=== PATIENT | female | born 1945 ===

== ENCOUNTER 2017-08-10 16:50 | Inpatient (IN) | payer MEDICARE ==
[2017-08-10 18:34] LABS: BASO # 0.1 K/uL (0.0-0.2); BASO % 1.2 % (0.0-2.0); EOS # 0.2 K/uL (0.0-0.7); EOS % 1.8 % (0.0-4.0); HEMOGLOBIN 12.8 g/dL (12.0-16.0); LYMPH % 34.2 % (20.0-40.0); MEAN CELL VOLUME 83.9 fl (81.0-99.0); MEAN CORPUSCULAR HEMOGLOBIN 28.5 pg (27.0-31.0); MEAN CORPUSCULAR HGB CONC 33.9 g/dL (33.0-37.0); MEAN PLATELET VOLUME 9.2 fl (7.2-11.7); MONO # 0.7 K/uL (0.0-0.8); MONO % 7.7 % (0.0-10.0); NEUT # 4.8 K/uL (1.8-7.0); NEUT % 55.1 % (50.0-75.0); RBC 4.48 Mil/uL (3.80-5.20); RED CELL DISTRIBUTION WIDTH 14.9 % (11.5-14.5); WHITE BLOOD COUNT 8.7 K/uL (4.8-10.8)
[2017-08-10 18:52] LABS: ALB/GLOB RATIO 1.2 (1.0-2.1); ALBUMIN 4.2 g/dL (3.5-5.0); ALT/SGPT 47 U/L (9-52); AST/SGOT 37 U/L (14-36); BLOOD UREA NITROGEN 14 mg/dl (7-17); CALCIUM 9.9 mg/dL (8.4-10.2); GFR AFRICAN-AMERICAN > 60; GFR NON-AFRICAN AMERICAN > 60
[2017-08-10 19:19] LABS: ACETAMINOPHEN < 10.0 ug/ml (10.0-30.0); SALICYLATE < 1.0 mg/dl
[2017-08-10 19:25] LABS: VALPROIC ACID 27.1 ug/mL (50.0-100.0)
--- NOTE | 2017-08-10 19:59 | ED PDOC ---
HPI: Psych/Substance Abuse Time Seen by Provider: 08/10/17 18:04 Chief Complaint (Nursing): Psychiatric Evaluation Chief Complaint (Provider): Psychiatric Evaluation History Per: Family History/Exam Limitations: no limitations Onset/Duration Of Symptoms: Days Current Symptoms Are (Timing): Still Present Additional Complaint(s): Shiloh Caicedo is a 71 year old female with a past medical history of bipolar disorder, who was brought to the ED by daughter for psychiatric evaluation s/p visiting her psychiatrist who recommended the patient be brought here. Daughter reports that the patient has had manic episodes for about two weeks and takes Depacon. She also states last Wednesday, she was brought to the hospital by the police, which exacerbated her guillermo. She denies any homicidal or suicidal ideation. Patient offers no other medical complaints at this time. PMD: Lili Phillips Past Medical History Reviewed: Historical Data, Nursing Documentation, Vital Signs Vital Signs: Last Vital Signs Temp 97.8 F 08/10/17 16:54 Pulse 76 08/10/17 16:54 Resp 18 08/10/17 16:54 BP 131/73 08/10/17 16:54 Pulse Ox 96 08/10/17 16:54 - Medical History PMH: Bipolar Disorder - Surgical History Surgical History: No Surg Hx - Family History Family History: States: Unknown Family Hx - Home Medications Home Medications: Ambulatory Orders Medication Instructions Recorded Divalproex [Depakote ER(ONCE 500 mg PO DAILY 08/10/17 DAILY)] Sertraline [Zoloft] 50 mg PO DAILY 08/10/17 hydroCHLOROthiazide [Hydrodiuril] 25 mg PO HS 08/10/17 - Allergies Allergies/Adverse Reactions: Allergies Allergy/AdvReac Type Severity Reaction Status Date / Time No Known Allergies Allergy Verified 08/10/17 16:57 Review of Systems ROS Statement: Except As Marked, All Systems Reviewed And Found Negative Psych: Positive for: Other ((+) manic episodes, (-) homicidal ideation). Negative for: Suicidal ideation Physical Exam - Reviewed Nursing Documentation Reviewed: Yes Vital Signs Reviewed: Yes - Physical Exam Appears: Positive for: Non-toxic, No Acute Distress Head Exam: Positive for: ATRAUMATIC, NORMAL INSPECTION, NORMOCEPHALIC Skin: Positive for: Normal Color Eye Exam: Positive for: Normal appearance Neck: Positive for: Normal Extremity: Positive for: Normal ROM. Negative for: Deformity, Swelling Neurologic/Psych: Positive for: Alert, Oriented. Negative for: Motor/Sensory Deficits - Laboratory Results Result Diagrams: 08/10/17 18:25 08/10/17 18:25 - ECG ECG: Positive for: Interpreted By Me ECG Rhythm: Positive for: Normal QRS, Sinus Rhythm, Nonspecific Changes Interpretation Of Abn EKG: early repol Rate: 65 O2 Sat by Pulse Oximetry: 96 (RA) Pulse Ox Interpretation: Normal Medical Decision Making Medical Decision Making: Time: 18:25 Plan: --Acetaminophen --Alcohol Serum--CMP --Drug Screen --Lavelle --Salicylate --Valproic Acid --CBC --Urinalysis --Crisis Evaluation Scribe Attestation: Documented by Arabella Norris, acting as a scribe for Vlad Potts PA-C Provider Scribe Attestation: All medical record entries made by the Scribe were at my direction and personally dictated by me. I have reviewed the chart and agree that the record accurately reflects my personal performance of the history, physical exam, medical decision making, and the department course for this patient. I have also personally directed, reviewed, and agree with the discharge instructions and disposition. Disposition - Clinical Impression Clinical Impression: Bipolar 1 disorder, manic, mild - Patient ED Disposition Is Patient to be Admitted: Yes Discussed With : Diana Golden Doctor Will See Patient In The: Hospital Counseled Patient/Family Regarding: Studies Performed, Diagnosis, Need For Followup - Disposition Disposition Time: 22:32 Condition: FAIR Forms: [email or web address] (Nepalese) - Pt Status Changed To: Hospital Disposition Of: Inpatient - Admit Certification Admit to Inpatient:: After my assessment, the patient will require hospitalization for at least two midnights. This is because of the severity of symptoms shown, intensity of services needed, and/or the medical risk in this patient being treated as an outpatient.
[2017-08-10 20:28] LABS: SQUAMOUS EPITHIAL 3 /hpf (0-5); URINE BACTERIA OCC (<OCC); URINE BILIRUBIN NEGATIVE (NEGATIVE); URINE BLOOD NEGATIVE (NEGATIVE); URINE CLARITY CLOUDY (Clear); URINE COLOR YELLOW (YELLOW); URINE GLUCOSE (UA) NEG (Normal); URINE LEUKOCYTE ESTERASE TRACE Leu/uL (Negative); URINE PROTEIN 30 mg/dL (NEGATIVE); URINE UROBILINOGEN 0.2-1.0 mg/dL (0.2-1.0)
[2017-08-10 20:33] LABS: BARBITURATES, UR NEGATIVE (NEGATIVE); BENZODIAZEPINES, UR NEGATIVE (NEGATIVE); OPIATES, UR NEGATIVE (NEGATIVE); PHENCYCLIDINE, UR NEGATIVE (NEGATIVE)
[2017-08-10 23:16] VITALS: O2SAT 97
[2017-08-11] MEDS ORDERED: Bismuth Subsalicylate 262 mg/15 ml Sus (240 ml) PO PRN (00:33)
[2017-08-11] MEDS ORDERED: Magnesium Hydroxide Susp 30 ml UD PO PRN (00:33)
[2017-08-11] MEDS ORDERED: Alum-Mag Hydrox-Simethicone Susp (30 mL) PO PRN (00:33)
--- NOTE | 2017-08-11 00:42 | PCM.BM ---
<JuanaWilmar Luna - Last Filed: 08/11/17 00:39> Treatment Plan Problems - Problems identified on initial assessmt Ineffective Impluse Control Date Initiated: 08/11/17 Time Initiated: 00:40 Assessment reference: NA Status: Active Treatment assets and liabiliti Patient Assests: cooperative, good support system, negotiates basic needs Patient Liabilities: other - Milieu Protocol Maintain good personal hygiene: daily Encourage regular showers, daily Remind patient to perform daily oral care, daily Assist patient to perform ADL's Maintain personal safety: every shift Educate patient to report safety concerns to staff, every shift Monitor environment for contraband/sharps Medication safety: Monitor for expected outcome, potential side effects: every shift, Assess barriers to learning: every shift, Assess readiness for medication education: every shift <Diana Golden - Last Filed: 08/11/17 11:13> - Diagnosis (1) Bipolar disorder Status: Acute Interventions: Medication management, Individual and group therapy, Psychoeducation 08/11/17 11:13 <Viji Hutton - Last Filed: 08/13/17 11:24> Family Contact Family contact: Patient agrees to contact, Family has been contacted by patient Family contact name: Eva - daughter Family contacted how many times per week?: 2 Discharge/Continuing Care - Education Needs Education Needs: Family Medication, Family Diagnosis/Disease Process, Family Coping Skills, Family Community resources, Family Health Practices/Safety, Family Personal Hygiene/Grooming, Family Aftercare Safety Plan, Patient Medication, Patient Diagnosis/Disease Process, Patient Coping Skills, Patient Community resources, Patient Health Practices/Safety, Patient Personal Hygiene/ Grooming, Patient Aftercare Safety Plan - Discharge Discharge Criteria: Tolerates medication w/o severe side effects, Free of paranoid thoughts, Free of agitation, Normal sleep pattern, Ability to care for self, Reduction of target symptoms Discharge to:: Home, With Family - Additional Comments 08/13/17 11:12 Pt seen and discussed in team meeting. Reason for admission reviewed and discussed. pt reported she does not recall who referred her to the hospital. Pt reported being in the hospital due to "something that happened to me." When asked to further elaborate, pt presented with flight of ideas and disorganized thought process. Pt started to talk about Holy and how she arrived from [place] to her son's home in [place], [place] to how her elderly mother of 99 is very sick in [place] and she needs to be discharged to go care for her. Pt very labile, talking about her grandmother that lived until the age of 105 and her aunt who recently in [facility] at the age of 95. Pt tearful when talking about her aunt. Pt carried around a notebook with her wherein she writes everything down. Pt guarded and hyper vigilant. Pt does not allow staff to look at the notebook. Notebook observed to have different post it on the outside with unit rooms numbers and name on it. Pt has been observed to be writing about until activity in her notebook and also about staff members. Again when asked why she was in the hospital, pt stated 'I don't talk much about that" and immediately after pt began talking about her grandchildren. Pt's social and medical issues reviewed. Pt reported she was residing with daughter, Eva but now resides alone. Pt's medications reviewed and discussed. Tx plan reviewed. Pt inquired about discharge and advised that it is recommended that she remain in the hospital until next week; pt verbalized agreement. SW to continue to follow case. Pt agreeable to journalists and other writers contacting her daughter, Eva and son, Gume Allison. Written consents forms were signed by pt. - Treatment Team Participation Discussed with Family/SO: No Was Patient/Family/SO present at Treatment Team Meeting: Yes
[2017-08-11 07:21] LABS: IRON 39 ug/dL (37-170)
[2017-08-11 07:31] LABS: ALB/GLOB RATIO 1.1 (1.0-2.1); ALBUMIN 3.6 g/dL (3.5-5.0); ALT/SGPT 42 U/L (9-52); AST/SGOT 32 U/L (14-36); BLOOD UREA NITROGEN 13 mg/dl (7-17); CALCIUM 9.4 mg/dL (8.4-10.2); GFR AFRICAN-AMERICAN > 60; GFR NON-AFRICAN AMERICAN > 60; HDL CHOLESTEROL 40 MG/DL (30-70); LDL CHOLESTEROL 146 mg/dL (0-129)
[2017-08-11 07:32] LABS: % IRON SATURATION 13 % (20-55); TOTAL IRON BINDING CAPACITY 287 ug/dL (250-450)
[2017-08-11 07:37] LABS: T4 6.84 ug/dl (5.5-11.0)
[2017-08-11 07:55] LABS: FERRITIN 61.6 ng/Ml (11.1-264.0)
--- NOTE | 2017-08-11 08:53 | CARD ---
APPROVED REPORT EKG Measurement Heart [id number] <Conclusion> Normal sinus rhythm Nonspecific ST abnormality Abnormal ECG
[2017-08-11] MEDS ORDERED: Divalproex 500 mg ER (ONCE DAILY formulation) PO SCH (10:00)
[2017-08-11] MEDS: Divalproex 500 mg DR(BID formulation) PO SCH ×2 (10:49→16:34)
--- NOTE | 2017-08-11 11:21 | PCM.PSYCH ---
Initial Psychiatric Evaluation - Initial Psychiatric Evaluation Type of Admission: Voluntary Legal Status: Capacity Chief Complaint (in patient's own words): "I don't want to tell you why I'm here." Patient's Reaction to Hospitalization: HPI: 71 yo female w/ h/o Bipolar disorder presents acutely manic in the context of family stress and unclear compliance with medications. Patient is guarded and will not discuss why she is in the hospital w/ principal technical writer. She denies AH/VH; but is clearly withholding information, covering her paperwork so that the principal technical writer can't see what she writes. She is manic, w/ pressured speech and inappropriately happy affect. Collateral history obtained by ER rice field worker: "Eva Caicedo- [phone]; Pt is bipolar, she has been sick for 12 years. She has been talking, insulting, repeating conversations on a continuous basis. She usually has at times low times and at times manic. For the past week and a half she has been manic. Pt was in [place] visiting her 99yr mom who is dying in bed. This has been difficult along with some other issues in there. A week ago she was taken to [facility] where she had a lot of philanthropy officer around her and that caused her to be very fearful. She was in the hallway of the hospital overnight where she saw a lot of activity that impacted her. She has not been the same since, she is traumatized. She is taking Depakote 500 mg, Sertralina 50mg and Hydrochlorothiazide 25mg. Pt is experiencing kyara." PPHx: H/o treatment w/ Depakote and Zoloft and outpatient treatment w/ Dr. Tilley PMHx: HTN (patient does not give any additional information) ALL: NKDA SHx: Retired, used to iron clothes, denies drugs/etoh, states that she lives "with any of my children" and reports having 9 grandchildren Current Medications: Active Medications Generic Name Dose Route Start Last Admin Trade Name Freq PRN Reason Stop Dose Admin Acetaminophen 650 mg 08/11/17 00:33 08/11/17 05:46 Tylenol 325mg Tab PO 650 mg Q4 PRN Administration Pain, moderate (4-7) Al Hydrox/Mg Hydrox/Simethicone 30 ml 08/11/17 00:33 Maalox Plus 30 Ml PO Q4 PRN Dyspepsia Bismuth Subsalicylate 524 mg 08/11/17 00:33 Pepto-Bismol PO Q4 PRN Diarrhea Divalproex Sodium 500 mg 08/11/17 10:00 08/11/17 10:[address](*Bid*) PO 500 mg BID PABLO Administration Lorazepam 0.5 mg 08/11/17 00:33 Ativan PO 08/25/17 00:34 HS PRN Insomnia Lorazepam 0.5 mg 08/11/17 00:33 Ativan PO 08/25/17 00:34 Q6 PRN Anixety/Agitation Magnesium Hydroxide 30 ml 08/11/17 00:33 Milk Of Magnesia PO HS PRN Constipation Past Psychiatric History - Past Psychiatric History Pertinent Medical Hx (Current Medical&Sleep Prob, Allergies): Allergies Allergy/AdvReac Type Severity Reaction Status Date / Time No Known Allergies Allergy Verified 08/10/17 16:57 Divalproex [Depakote ER(ONCE DAILY)] 500 mg PO DAILY 08/10/17 Sertraline [Zoloft] 50 mg PO DAILY 08/10/17 hydroCHLOROthiazide [Hydrodiuril] 25 mg PO HS 08/10/17 Lisinopril [Zestril] 20 mg PO DAILY 08/11/17 Review of Systems - Psychiatric Psychiatric: As Per HPI, Abnormal Sleep Pattern, Behavioral Changes, Change in Appetite, Difficulty Concentrating, Mood Swings, Other (Kyara) Mental Status Examination - Personal Presentation Personal Presentation: Looks stated age - Affect Affect: Other (Manic) - Motor Activity Motor Activity: Calm - Reliability in Providing Information Reliability in Providing Information: Poor, due to alteration in thoughts - Speech Speech: Coherent - Mood Mood: Euphoric - Formal Thought Process Formal Thought Process: Paranoia - Hallucinations/Delusions Additional comments: Denies AH/VH - Obsessions/Compulsions Obsessions: No Compulsions: No - Cognitive Functions Orientation: Person, Place, Situation, Time Sensorium: Alert Judgement: Imparied, as evidence by: Poor judgement, Imparied, as evidence by: Lack of insight into illness Memory: Recent impaired, as evidenced by: Other (Patient unwilling to give information, unclear if there are memory deficits) - Risk Risk: Diminished functioning - Strength & Assets Inventory Strength & Assets Inventory: Family support - Limitations Limitations: Decreased memory, recent DSM 5 DX - DSM 5 DSM 5 Diagnosis: Bipolar Disorder - Recommended/Plan of Treatment Treatment Recommendations and Plan of Treatment: Bipolar Disorder -Admit to geriatric psychiatry unit -Individual and group therapy -Psychoeducation -Increase Depakote to 500 PO BID (current VPA level 27.1) -Hold Zoloft -Medicine consult -Obtain collateral history -Disposition planning Projected ELOS: 5-10 days Discharge Plan and Discharge Criteria: Discharge when patient is psychiatrically stable
--- NOTE | 2017-08-11 12:19 | RAD ---
HISTORY: admit COMPARISON: No prior. TECHNIQUE: Chest PA and lateral FINDINGS: LUNGS: Limited fibrotic changes are questioned at the inferior right lung zone versus linear atelectasis. No definite airspace disease bilaterally. PLEURA: No significant pleural effusion identified. No pneumothorax apparent. CARDIOVASCULAR: Mild cardiomegaly without pulmonary vascular derangement appreciable. OSSEOUS STRUCTURES: No significant abnormalities. VISUALIZED UPPER ABDOMEN: Normal. OTHER FINDINGS: None. IMPRESSION: Mild cardiomegaly. No definite infiltrate, pleural effusion or pneumothorax. Limited fibrosis or linear atelectasis inferior right lung zone.
[2017-08-11 13:34] LABS: FOLATE 16.3 ng/mL
[2017-08-11] MEDS ORDERED: Potassium Chloride 20 mEq ER Tab PO ONE (14:20)
--- NOTE | 2017-08-11 16:01 | CP.PCM.CON ---
History of Present Illness - History of Present Illness History of Present Illness: This is a 71 year old female with past medical history of essential hypertension and bipolar disorder who is being brought to the ED for psychiatric evaluation with acute guillermo due to family stressors and noncompliance with medications. She was seen today by me in the inpatient psychiatric oleary. She has no complaints and states that she feels well. Patient denies chest pain, shortness of breath, fevers, chills, nausea, vomiting, diarrhea, headache. All of the patient's questions were answered at the bedside. Review of Systems - Review of Systems Review of Systems: A 12 point review of systems was conducted and found to be negative other than what was mentioned in the HPI. Past Patient History - Infectious Disease Hx of Infectious Diseases: None - Past Medical History & Family History Past Medical History?: Yes Past Family History: Reviewed and not pertinent - Past Social History Smoking Status: Never Smoked Alcohol: None Drugs: Denies Home Situation {Lives}: With Family - CARDIAC Hx Hypertension: Yes - MUSCULOSKELETAL/RHEUMATOLOGICAL Hx Falls: No - PSYCHIATRIC Hx Bipolar Disorder: Yes Hx Substance Use: No Meds Allergies/Adverse Reactions: Allergies Allergy/AdvReac Type Severity Reaction Status Date / Time No Known Allergies Allergy Verified 08/10/17 16:57 - Medications Medications: Current Medications Acetaminophen (Tylenol 325mg Tab) 650 mg PO Q4 PRN PRN Reason: Pain, moderate (4-7) Last Admin: 08/11/17 05:46 Dose: 650 mg Al Hydrox/Mg Hydrox/Simethicone (Maalox Plus 30 Ml) 30 ml PO Q4 PRN PRN Reason: Dyspepsia Atorvastatin Calcium (Lipitor) 20 mg PO HS PABLO Bismuth Subsalicylate (Pepto-Bismol) 524 mg PO Q4 PRN PRN Reason: Diarrhea Divalproex Sodium (Depakote Dr(*Bid*)) 500 mg PO BID [facility] Last Admin: 08/11/17 10:49 Dose: 500 mg Hydrochlorothiazide (Hydrodiuril) 25 mg PO DAILY [facility] Last Admin: 08/11/17 12:49 Dose: 25 mg Lisinopril (Zestril) 20 mg PO DAILY [facility] Last Admin: 08/11/17 12:49 Dose: 20 mg Lorazepam (Ativan) 0.5 mg PO HS PRN PRN Reason: Insomnia Stop: 08/25/17 00:34 Lorazepam (Ativan) 0.5 mg PO Q6 PRN PRN Reason: Anixety/Agitation Stop: 08/25/17 00:34 Magnesium Hydroxide (Milk Of Magnesia) 30 ml PO HS PRN PRN Reason: Constipation Physical Exam - Additional Findings Additional findings: Physical exam: Constitutional- cooperative, awake, alert Head- NCAT, PERRL Eye- PERRL, EOMI ENT- normal exam, MMM. Neck- normal inspection, supple, no JVD Respiratory- CTAB, no wheezes rales rhonchi Cardiovascular- RRR, +S1, +S2 no MRG GI/Abdominal- normal bowel sounds, soft, no mass, no hsm Skin- warm, dry Extremities Exam- normal capillary refill, normal inspection Neurological Exam- alert, awake, oriented Psych- labile mood, normal affect Results - Vital Signs Recent Vital Signs: Last Vital Signs Temp 97.2 F L 08/11/17 15:43 Pulse 74 08/11/17 15:43 Resp 19 08/11/17 15:43 BP 140/76 08/11/17 15:43 Pulse Ox 97 08/10/17 23:14 - Labs Result Diagrams: 08/10/17 18:25 08/11/17 05:50 Labs: Laboratory Results - last 24 hr 08/10/17 08/10/17 08/10/17 18:25 18:25 18:25 WBC 8.7 RBC 4.48 Hgb 12.8 Hct 37.6 MCV 83.9 MCH 28.5 MCHC 33.9 RDW 14.9 H Plt Count 253 MPV 9.2 Neut % (Auto) 55.1 Lymph % (Auto) 34.2 [place] % (Auto) 7.7 Eos % (Auto) 1.8 Baso % (Auto) 1.2 Neut # (Auto) 4.8 Lymph # (Auto) 3.0 [place] # (Auto) 0.7 Eos # (Auto) 0.2 Baso # (Auto) 0.1 Sodium 147 Potassium 3.4 L Chloride 100 Carbon Dioxide 32 H Anion Gap 18 BUN 14 Creatinine 0.8 Est GFR ( Amer) > 60 Est GFR (Non-Af Amer) > 60 Random Glucose 149 H Hemoglobin A1c Calcium 9.9 Iron TIBC % Saturation Ferritin Total Bilirubin 0.6 AST 37 H ALT 47 Alkaline Phosphatase 58 Total Protein 7.8 Albumin 4.2 Globulin 3.6 Albumin/Globulin Ratio 1.2 Triglycerides Cholesterol LDL Cholesterol Direct HDL Cholesterol Vitamin B12 Folate Free T4 Thyroxine (T4) TSH 3rd Generation Urine Color Urine Clarity Urine pH Ur Specific [place] Urine Protein Urine Glucose (UA) Urine Ketones Urine Blood Urine Nitrate Urine Bilirubin Urine Urobilinogen Ur Leukocyte Esterase Urine RBC (Auto) Urine Microscopic WBC Ur Squamous Epith Cells Urine Bacteria Salicylates < 1.0 Urine Opiates Screen Urine Methadone Screen Acetaminophen < 10.0 L Ur Barbiturates Screen Valproic Acid 27.1 L Ur Phencyclidine Scrn Ur Amphetamines Screen U Benzodiazepines Scrn Cascades < 0.2 L U Oth Cocaine Metabols U Cannabinoids Screen Alcohol, Quantitative < 10 08/10/17 08/10/17 08/11/17 19:56 19:56 05:50 WBC RBC Hgb Hct MCV MCH MCHC RDW Plt Count MPV Neut % (Auto) Lymph % (Auto) [place] % (Auto) Eos % (Auto) Baso % (Auto) Neut # (Auto) Lymph # (Auto) [place] # (Auto) Eos # (Auto) Baso # (Auto) Sodium 145 Potassium 3.4 L Chloride 102 Carbon Dioxide 29 Anion Gap 17 BUN 13 Creatinine 0.6 L Est GFR ( Amer) > 60 Est GFR (Non-Af Amer) > 60 Random Glucose 95 Hemoglobin A1c Calcium 9.4 Iron TIBC % Saturation Ferritin 61.6 Total Bilirubin 0.5 AST 32 ALT 42 Alkaline Phosphatase 55 Total Protein 6.9 Albumin 3.6 Globulin 3.3 Albumin/Globulin Ratio 1.1 Triglycerides 123 Cholesterol 221 H LDL Cholesterol Direct 146 H HDL Cholesterol 40 Vitamin B12 654 Folate 16.3 Free T4 Thyroxine (T4) 6.84 TSH 3rd Generation 0.85 Urine Color Yellow Urine Clarity Cloudy Urine pH 5.0 Ur Specific [place] 1.029 Urine Protein 30 Urine Glucose (UA) Neg Urine Ketones Trace Urine Blood Negative Urine Nitrate Negative Urine Bilirubin Negative Urine Urobilinogen 0.2-1.0 Ur Leukocyte Esterase Trace Urine RBC (Auto) 3 Urine Microscopic WBC 7 H Ur Squamous Epith Cells 3 Urine Bacteria Occ H Salicylates Urine Opiates Screen Negative Urine Methadone Screen Negative Acetaminophen Ur Barbiturates Screen Negative Valproic Acid Ur Phencyclidine Scrn Negative Ur Amphetamines Screen Negative U Benzodiazepines Scrn Negative Cascades U Oth Cocaine Metabols Negative U Cannabinoids Screen Negative Alcohol, Quantitative 08/11/17 08/11/17 08/11/17 05:50 05:50 05:50 WBC RBC Hgb Hct MCV MCH MCHC RDW Plt Count MPV Neut % (Auto) Lymph % (Auto) [place] % (Auto) Eos % (Auto) Baso % (Auto) Neut # (Auto) Lymph # (Auto) [place] # (Auto) Eos # (Auto) Baso # (Auto) Sodium Potassium Chloride Carbon Dioxide Anion Gap BUN Creatinine Est GFR ( Amer) Est GFR (Non-Af Amer) Random Glucose Hemoglobin A1c 6.0 Calcium Iron 39 TIBC 287 % Saturation 13 L Ferritin Total Bilirubin AST ALT Alkaline Phosphatase Total Protein Albumin Globulin Albumin/Globulin Ratio Triglycerides Cholesterol LDL Cholesterol Direct HDL Cholesterol Vitamin B12 Folate Free T4 1.11 Thyroxine (T4) TSH 3rd Generation Urine Color Urine Clarity Urine pH Ur Specific [place] Urine Protein Urine Glucose (UA) Urine Ketones Urine Blood Urine Nitrate Urine Bilirubin Urine Urobilinogen Ur Leukocyte Esterase Urine RBC (Auto) Urine Microscopic WBC Ur Squamous Epith Cells Urine Bacteria Salicylates Urine Opiates Screen Urine Methadone Screen Acetaminophen Ur Barbiturates Screen Valproic Acid Ur Phencyclidine Scrn Ur Amphetamines Screen U Benzodiazepines Scrn Cascades U Oth Cocaine Metabols U Cannabinoids Screen Alcohol, Quantitative Assessment & Plan - Assessment and Plan (Free Text) Plan: ASSESSMENT/PLAN 71 yo female with bipolar disorder admitted to the psychiatric oleary for acute guillermo. She has hx hypertension, uncontrolled this morning, now improved Essential hypertension - Continue HCTZ 20 mg po daily - Continue Lisinopril 20 mg po daily - monitor BP, may need to increase BP meds Hypokalemia, mild 3.4 repleted po Asymptomatic bacteriuria - No sx reported by patient - UCX ordered and pending Bipolar disorder, acutely manic - Management as per psychiatry Thank you for the consultation
[2017-08-12] MEDS: Divalproex 500 mg DR(BID formulation) PO SCH ×2 (08:17→18:00)
--- NOTE | 2017-08-12 10:40 | PCM.PYCHPN ---
Psychiatric Progress Note - Psychiatric Progress Note Patient seen today, length of contact: Patient evaluated, case discussed with team, chart reviewed Patient Chief Complaint: "I'm feeling good." Problems Identified/Issues Discussed: Patient continues to have euphoric mood w/ tangential overproductive speech. She is taking detailed notes on everything she observes happening on the unit. She seems guarded, paranoid and manic. Medication Change: No Medical Record Reviewed: Yes Consults ordered or reviewed: Medicine consult Mental Status Examination - Cognitive Function Orientation: Person, Place, Situation, Time Attention: Poor Concentration: Poor Association: Loose Decription of patient's judgement and insights: Poor I/J - Mood Mood: Euphoric - Affect Affect: Other (Manic) - Speech Speech: Pressured - Formal Thought Process Formal Thought Process: Paranoia, Loosening of associations, Flight of ideas Psychotic Thoughts and Behaviors: +Paranoia - Suicidal Ideation Suicidal Ideation: No - Homicidal Ideation Homicidal Ideation: No Goal/Treatment Plan - Goal/Treatment Plan Need for Continued Stay: Remain at risks for inpatient hospitalization, Discharge may exacerbated symptoms Progress Toward Problem(s) and Goals/Treatment Plan: Bipolar Disorder -Individual and group therapy -Psychoeducation -Continue Depakote to 500 PO BID (current VPA level 27.1) -Medicine consult -Obtain collateral history -Disposition planning Estimated Date of D/C: 08/17/17
[2017-08-12] MEDS: Risperidone M tab 0.5MG PO SCH (20:59)
[2017-08-13] MEDS: Divalproex 500 mg DR(BID formulation) PO SCH (08:42)
--- NOTE | 2017-08-13 11:12 | PCM.PYCHPN ---
Psychiatric Progress Note - Psychiatric Progress Note Patient seen today, length of contact: Patient evaluated, case discussed with team, chart reviewed Patient Chief Complaint: "I'm feeling good." Problems Identified/Issues Discussed: Patient continues to have non-linear speech at times and is circumstantial. She continues to take detailed notes on things she observes on the unit and makes notes on which patients are in which rooms. She is guarded w/ questions and reports that she does not know why her family believes she needs to be in the hospital. She is inappropriately happy at times. Medication Change: No Medical Record Reviewed: Yes Consults ordered or reviewed: Medicine consult Mental Status Examination - Cognitive Function Orientation: Person, Place, Situation, Time Attention: WNL Association: Loose Decription of patient's judgement and insights: Poor I/J - Mood Mood: Euphoric - Affect Affect: Other (Labile) - Speech Speech: Appropriate - Formal Thought Process Formal Thought Process: Paranoia, Loosening of associations, Circumstantial Psychotic Thoughts and Behaviors: +Paranoia - Suicidal Ideation Suicidal Ideation: No - Homicidal Ideation Homicidal Ideation: No Goal/Treatment Plan - Goal/Treatment Plan Need for Continued Stay: Remain at risks for inpatient hospitalization, Discharge may exacerbated symptoms Progress Toward Problem(s) and Goals/Treatment Plan: Bipolar Disorder w/ Psychotic Features -Individual and group therapy -Psychoeducation -Continue Depakote 500 mg PO BID, will recheck VPA level -Continue Risperdal 0.5 mg PO HS -Medicine consult -Obtain collateral history -Disposition planning Estimated Date of D/C: 08/17/17
[2017-08-13] MEDS: Risperidone M tab 0.5MG PO SCH (21:44)
[2017-08-14] MEDS: Divalproex 500 mg DR(BID formulation) PO SCH ×2 (08:45→16:29)
--- NOTE | 2017-08-14 14:35 | PCM.PYCHPN ---
Psychiatric Progress Note - Psychiatric Progress Note Patient seen today, length of contact: Patient evaluated, case discussed with team, chart reviewed Patient Chief Complaint: I am fine Problems Identified/Issues Discussed: pt seen on the unit, superficially cooperative guarded, limited insight into her illness denied suicida or homicidal ideations, denied perceptual disturbances. no reported side effect of medications DSM 5 Symptoms Update: bipolar disorder Medication Change: No Medical Record Reviewed: Yes Mental Status Examination - Cognitive Function Orientation: Person, Place, Situation, Time Attention: WNL Association: Loose - Mood Mood: Euphoric - Affect Affect: Other (Labile) - Speech Speech: Appropriate - Formal Thought Process Formal Thought Process: Paranoia, Loosening of associations, Circumstantial - Suicidal Ideation Suicidal Ideation: No - Homicidal Ideation Homicidal Ideation: No Goal/Treatment Plan - Goal/Treatment Plan Need for Continued Stay: Remain at risks for inpatient hospitalization, Discharge may exacerbated symptoms Progress Toward Problem(s) and Goals/Treatment Plan: continue current management Estimated Date of D/C: 08/17/17
[2017-08-14] MEDS: Risperidone M tab 0.5MG PO SCH (21:10)
[2017-08-15] MEDS: Divalproex 500 mg DR(BID formulation) PO SCH ×2 (09:00→17:30)
--- NOTE | 2017-08-15 13:28 | PCM.PYCHPN ---
Psychiatric Progress Note - Psychiatric Progress Note Patient seen today, length of contact: Patient evaluated, case discussed with team, chart reviewed Patient Chief Complaint: I am fine Problems Identified/Issues Discussed: pt seen on the unit, smiling, reported feeling well, no reported behavioral disturbances denied suicidal or homicidal ideations, denied perceptual disturbances. no reported side effect of medications DSM 5 Symptoms Update: bipolar disorder Medication Change: No Medical Record Reviewed: Yes Mental Status Examination - Cognitive Function Orientation: Person, Place, Situation, Time Attention: WNL Association: Loose - Mood Mood: Euphoric - Affect Affect: Other (Labile) - Speech Speech: Appropriate - Formal Thought Process Formal Thought Process: Paranoia, Loosening of associations, Circumstantial - Suicidal Ideation Suicidal Ideation: No - Homicidal Ideation Homicidal Ideation: No Goal/Treatment Plan - Goal/Treatment Plan Need for Continued Stay: Remain at risks for inpatient hospitalization, Discharge may exacerbated symptoms Progress Toward Problem(s) and Goals/Treatment Plan: continue current management Estimated Date of D/C: 08/17/17
[2017-08-15] MEDS: Risperidone M tab 0.5MG PO SCH (21:04)
[2017-08-16 06:36] LABS: ALB/GLOB RATIO 1.1 (1.0-2.1); ALBUMIN 3.5 g/dL (3.5-5.0); ALT/SGPT 29 U/L (9-52); AST/SGOT 21 U/L (14-36); BLOOD UREA NITROGEN 13 mg/dl (7-17); CALCIUM 9.5 mg/dL (8.4-10.2); GFR AFRICAN-AMERICAN > 60; GFR NON-AFRICAN AMERICAN > 60
[2017-08-16] MEDS: Divalproex 500 mg DR(BID formulation) PO SCH ×3 (08:34→17:10)
--- NOTE | 2017-08-16 09:45 | PCM.PYCHPN ---
Psychiatric Progress Note - Psychiatric Progress Note Patient seen today, length of contact: Patient evaluated, case discussed with team, chart reviewed Patient Chief Complaint: "I'm feeling good." Problems Identified/Issues Discussed: Patient continues to have non-linear, circumstantial speech. She continues to write in her notebook about events that occurred, but the writing is non-linear and it is unclear why she would write these things down. She continues to carry around the papers that note what she ate every day. She seems paranoid and guarded. She continues to state that she does not understand who brought her to the hospital or why. She defecated twice on the floor over the weekend and when questioned about it she can not give a reason why this occurred, other than that she was given salmon with jelly (unlikely true) which gave her stomach cramps. She is labile during the conversation and inappropriately happy at times. Diagnostic Results: VPA 97.9 on 08/16/17 Medication Change: Yes (Increase Risperdal to 1 mg PO HS) Medical Record Reviewed: Yes Consults ordered or reviewed: Medicine consult Mental Status Examination - Cognitive Function Orientation: Person, Place, Situation, Time Attention: WNL Association: Loose Decription of patient's judgement and insights: Poor I/J - Mood Mood: Euphoric - Affect Affect: Other (Labile) - Speech Speech: Appropriate - Formal Thought Process Formal Thought Process: Paranoia, Loosening of associations, Circumstantial Psychotic Thoughts and Behaviors: +Paranoia - Suicidal Ideation Suicidal Ideation: No - Homicidal Ideation Homicidal Ideation: No Goal/Treatment Plan - Goal/Treatment Plan Need for Continued Stay: Remain at risks for inpatient hospitalization, Discharge may exacerbated symptoms Progress Toward Problem(s) and Goals/Treatment Plan: Bipolar Disorder w/ Psychotic Features -Individual and group therapy -Psychoeducation -Continue Depakote 500 mg PO BID -Increase Risperdal to 1 mg PO HS -Medicine consult -Disposition planning Estimated Date of D/C: 08/19/17
[2017-08-17] MEDS: Divalproex 500 mg DR(BID formulation) PO SCH ×2 (09:27→17:22)
--- NOTE | 2017-08-17 11:01 | PCM.PYCHPN ---
Psychiatric Progress Note - Psychiatric Progress Note Patient seen today, length of contact: Patient evaluated, case discussed with team, chart reviewed Patient Chief Complaint: "I'm feeling good." Problems Identified/Issues Discussed: Patient is more organized, but still seems inappropriately happy at times. She denies acute complaints. She is less guarded w/ insurance writer. No adverse effects to medications reported. We discussed continued titration of Risperdal. Diagnostic Results: VPA 97.9 on 08/16/17 Medication Change: Yes (Increase Risperdal to 2 mg PO HS) Medical Record Reviewed: Yes Consults ordered or reviewed: Medicine consult Mental Status Examination - Cognitive Function Orientation: Person, Place, Situation, Time Attention: WNL Association: Loose Decription of patient's judgement and insights: Improving I/J - Mood Mood: Euphoric - Affect Affect: Broad - Speech Speech: Appropriate - Formal Thought Process Formal Thought Process: Loosening of associations, Circumstantial Psychotic Thoughts and Behaviors: +Mild paranoia - Suicidal Ideation Suicidal Ideation: No - Homicidal Ideation Homicidal Ideation: No Goal/Treatment Plan - Goal/Treatment Plan Need for Continued Stay: Remain at risks for inpatient hospitalization, Discharge may exacerbated symptoms Progress Toward Problem(s) and Goals/Treatment Plan: Bipolar Disorder w/ Psychotic Features -Individual and group therapy -Psychoeducation -Continue Depakote 500 mg PO BID -Increase Risperdal to 2 mg PO HS -Medicine consult -Disposition planning Estimated Date of D/C: 08/19/17
[2017-08-18 07:02] LABS: ALB/GLOB RATIO 1.1 (1.0-2.1); ALBUMIN 3.4 g/dL (3.5-5.0); ALT/SGPT 31 U/L (9-52); AST/SGOT 47 U/L (14-36); BLOOD UREA NITROGEN 17 mg/dl (7-17); CALCIUM 9.4 mg/dL (8.4-10.2); GFR AFRICAN-AMERICAN > 60; GFR NON-AFRICAN AMERICAN > 60
[2017-08-18] MEDS: Divalproex 500 mg DR(BID formulation) PO SCH ×2 (08:39→16:52)
--- NOTE | 2017-08-18 11:35 | PCM.PYCHPN ---
Psychiatric Progress Note - Psychiatric Progress Note Patient seen today, length of contact: Patient evaluated, case discussed with team, chart reviewed Patient Chief Complaint: "I'm feeling good." Problems Identified/Issues Discussed: Patient is more organized, but continues to be circumstantial. She is less guarded w/ procedure writer. No adverse effects to medications reported. As per family, patient seems more organized and less paranoid. Diagnostic Results: VPA 97.9 on 08/16/17 Medication Change: No Medical Record Reviewed: Yes Consults ordered or reviewed: Medicine consult Mental Status Examination - Cognitive Function Orientation: Person, Place, Situation, Time Attention: WNL Association: Loose Decription of patient's judgement and insights: Improving I/J - Mood Mood: Euphoric - Affect Affect: Broad - Speech Speech: Appropriate - Formal Thought Process Formal Thought Process: Paranoia, Loosening of associations, Circumstantial Psychotic Thoughts and Behaviors: +Paranoia - Suicidal Ideation Suicidal Ideation: No - Homicidal Ideation Homicidal Ideation: No Goal/Treatment Plan - Goal/Treatment Plan Need for Continued Stay: Remain at risks for inpatient hospitalization, Discharge may exacerbated symptoms Progress Toward Problem(s) and Goals/Treatment Plan: Bipolar Disorder w/ Psychotic Features -Individual and group therapy -Psychoeducation -Continue Depakote 500 mg PO BID -Continue Risperdal 2 mg PO HS -Medicine consult -Disposition planning Estimated Date of D/C: 08/20/17
[2017-08-19] MEDS: Divalproex 500 mg DR(BID formulation) PO SCH ×2 (08:41→16:46)
--- NOTE | 2017-08-19 10:09 | PCM.PYCHPN ---
Psychiatric Progress Note - Psychiatric Progress Note Patient seen today, length of contact: Patient evaluated, case discussed with team, chart reviewed Patient Chief Complaint: "I'm feeling good." Problems Identified/Issues Discussed: Patient is less paranoid and more linear on conversation. Family and patient are interested in neurocognitive testing to determine if patient has memory deficits. No adverse effects to medications reported. Diagnostic Results: VPA 97.9 on 08/16/17; VPA 92 on 08/18/16 Medication Change: No Medical Record Reviewed: Yes Consults ordered or reviewed: Medicine consult Mental Status Examination - Cognitive Function Orientation: Person, Place, Situation, Time Attention: WNL Association: Loose Decription of patient's judgement and insights: Improving I/J - Mood Mood: Neutral - Affect Affect: Broad - Speech Speech: Appropriate - Formal Thought Process Formal Thought Process: Loosening of associations Psychotic Thoughts and Behaviors: Denies acute paranoia - Suicidal Ideation Suicidal Ideation: No - Homicidal Ideation Homicidal Ideation: No Goal/Treatment Plan - Goal/Treatment Plan Need for Continued Stay: Remain at risks for inpatient hospitalization, Discharge may exacerbated symptoms Progress Toward Problem(s) and Goals/Treatment Plan: Bipolar Disorder w/ Psychotic Features -Individual and group therapy -Psychoeducation -Continue Depakote 500 mg PO BID -Continue Risperdal 2 mg PO HS -Medicine consult -Psychology consult -Disposition planning- discharge to home tomorrow under the care of her family Estimated Date of D/C: 08/20/17
[2017-08-19 16:20] VITALS: RESP 20
[2017-08-20] MEDS: Divalproex 500 mg DR(BID formulation) PO SCH ×2 (08:37→16:28)
--- NOTE | 2017-08-20 11:47 | CP.PCM.CON ---
History of Present Illness - History of Present Illness History of Present Illness: Pt is a 71 year old female admitted to the geropsych unit and referred to the scenario writer for evaluation. On the DRS, pt scored an overall score of 102. Pt's Attention skills and Construction skills fell within normal limits. His Initiation, Conceptualization and Memory skills fell in the Deficient Range. Overall 102 Attention 34(wnl) Construction 4 (wnl) Initiation 24 Memory 12 Conceptualization 28 Deficits noted on evaluation Past Patient History - Infectious Disease Hx of Infectious Diseases: None - Past Medical History & Family History Past Medical History?: Yes Past Family History: Reviewed and not pertinent - Past Social History Smoking Status: Never Smoked Alcohol: None Drugs: Denies Home Situation {Lives}: With Family - CARDIAC Hx Hypertension: Yes - MUSCULOSKELETAL/RHEUMATOLOGICAL Hx Falls: No - PSYCHIATRIC Hx Bipolar Disorder: Yes Hx Substance Use: No Meds Home Medications: Home Medication List Medication Instructions Recorded Confirmed Type Atorvastatin [Lipitor] 20 mg PO HS tab 08/19/17 Rx Divalproex [Depakote DR(*BID*)] 500 mg PO BID #60 tcp 08/19/17 Rx risperiDONE [RisperDAL Tab] 2 mg PO HS #30 tab 08/19/17 Rx Allergies/Adverse Reactions: Allergies Allergy/AdvReac Type Severity Reaction Status Date / Time No Known Allergies Allergy Verified 08/10/17 16:57 - Medications Medications: Current Medications Atorvastatin Calcium (Lipitor) 20 mg PO HS [facility] Last Admin: 08/19/17 21:10 Dose: 20 mg Divalproex Sodium (Depakote Dr(*Bid*)) 500 mg PO BID [facility] Last Admin: 08/20/17 08:37 Dose: 500 mg Hydrochlorothiazide (Hydrodiuril) 25 mg PO DAILY [facility] Last Admin: 08/19/17 08:41 Dose: 25 mg Lisinopril (Zestril) 20 mg PO DAILY [facility] Last Admin: 08/20/17 08:37 Dose: 20 mg Risperidone (Risperdal Tab) 2 mg PO [facility] Last Admin: 08/19/17 21:10 Dose: 2 mg Results - Vital Signs Recent Vital Signs: Last Vital Signs Temp 97.5 F L 08/20/17 05:48 Pulse 59 L 08/20/17 08:37 Resp 20 08/20/17 05:48 BP 128/82 08/20/17 08:37 Pulse Ox 97 04/10/18 23:14 - Labs Result Diagrams: 08/10/17 18:25 08/18/17 05:30
--- NOTE | 2017-08-20 12:21 | PCM.PYCHDC ---
Mental Status Examination - Mental Status Examination Orientation: Person, Place, Situation, Time Memory: Impaired Mood: Neutral Affect: Broad Speech: Appropriate Attention: WNL Concentration: Poor Association: WNL Fund of Knowledge: WNL Formal Thought Process: No Impairment Description of patient's judgement and insight: Fair I/J Psychotic Thoughts and Behaviors: Denies acute paranoia Suicidal Ideation: No Current Homicidal Ideation?: No Discharge Summary - Discharge Note Reason for Hospitalization: HPI: 71 yo female w/ h/o Bipolar disorder presents acutely manic in the context of family stress and unclear compliance with medications. Patient is guarded and will not discuss why she is in the hospital w/ sign writer letterer or painter. She denies AH/VH; but is clearly withholding information, covering her paperwork so that the sign writer letterer or painter can't see what she writes. She is manic, w/ pressured speech and inappropriately happy affect. Collateral history obtained by ER overhead worker: "Eva Caicedo- [phone]; Pt is bipolar, she has been sick for 12 years. She has been talking, insulting, repeating conversations on a continuous basis. She usually has at times low times and at times manic. For the past week and a half she has been manic. Pt was in [place] visiting her 99yr mom who is dying in bed. This has been difficult along with some other issues in there. A week ago she was taken to [facility] where she had a lot of [place] police lieutenant around her and that caused her to be very fearful. She was in the hallway of the hospital overnight where she saw a lot of activity that impacted her. She has not been the same since, she is traumatized. She is taking Depakote 500 mg, Sertralina 50mg and Hydrochlorothiazide 25mg. Pt is experiencing guillermo." PPHx: H/o treatment w/ Depakote and Zoloft and outpatient treatment w/ Dr. Tilley PMHx: HTN (patient does not give any additional information) ALL: NKDA SHx: Retired, used to iron clothes, denies drugs/etoh, states that she lives "with any of my children" and reports having 9 grandchildren Consultations:: List each consultation separately and include: 1. Reason for request. 2. Findings. 3. Follow-up Consultations: Medicine consult Psychology consult: Pt is a 71 year old female admitted to the geropsych unit and referred to the sign writer letterer or painter for evaluation. On the DRS, pt scored an overall score of 102. Pt's Attention skills and Construction skills fell within normal limits. His Initiation, Conceptualization and Memory skills fell in the Deficient Range. Overall 102 Attention 34(wnl) Construction 4 (wnl) Initiation 24 Memory 12 Conceptualization 28 Deficits noted on evaluation Summary of Hospital Course include:: 1. Description of specific treatment plan utilized for patients during their course of treatmen. 2. Summarize the time- course for resolution of acute symptoms and/or regressed behaviors. 3. Describe issues identified and worked on during hospitalization. 4. Describe medication utilized. 5. Describe medical problems identified and treated. 6. Reassessment of suicide risk Summary of Hospital Course: Patient was admitted to the psychiatry unit. Individual and group therapy were provided. Patient was stabilized on Depakote and Risperdal. She was also started on Namenda for dementia. She is more organized and not acutely paranoid. She is psychiatrically stable for discharge with outpatient follow- up. - Diagnosis (1) Bipolar disorder Current Visit: Yes Status: Chronic - Final Diagnosis (DSM 5) Condition upon Discharge: STABLE DSM 5: Bipolar Disorder w/ Psychotic Features; Dementia Disposition: HOME/ ROUTINE Follow-up Treatment Plan: Bipolar Disorder w/ Psychotic Features; Dementia -Continue Depakote 500 mg PO BID -Continue Risperdal 2 mg PO HS -Namenda 5 mg PO Daily -Medicine consult -Psychology consult Prescriptions/Medication Reconciliation: Divalproex [Depakote DR(*BID*)] 500 mg PO BID #60 tcp Memantine [Namenda] 5 mg PO DAILY #30 tab risperiDONE [RisperDAL Tab] 2 mg PO HS #30 tab - Smoking Cessation Smoking Cessation Medication prescribed: No Reason for not providing: Not indicated - Antipsychotic Medications Pt discharged on 2 or more routine antipsychotic medications: No
--- NOTE | 2017-08-20 13:52 | PCM.BM ---
Treatment Plan Problems - Problems identified on initial assessmt Ineffective Impluse Control Date Initiated: 08/11/17 Time Initiated: 00:40 Assessment reference: NA Status: Active Treatment assets and liabiliti Patient Assests: cooperative, good support system, negotiates basic needs Patient Liabilities: other - Milieu Protocol Maintain good personal hygiene: daily Encourage regular showers, daily Remind patient to perform daily oral care, daily Assist patient to perform ADL's Maintain personal safety: every shift Educate patient to report safety concerns to staff, every shift Monitor environment for contraband/sharps Medication safety: Monitor for expected outcome, potential side effects: every shift, Assess barriers to learning: every shift, Assess readiness for medication education: every shift Milieu Narrative: Bipolar Disorder w/ Psychotic Features; Dementia -Continue Depakote 500 mg PO BID -Continue Risperdal 2 mg PO HS -Namenda 5 mg PO Daily -Medicine consult -Psychology consult Family Contact Family involvement: Family/SO is involved Family contact: Patient agrees to contact, Family has been contacted by patient , Telephone contact initiated by staff Family contact name: Eva - daughter Family contact comment: [phone] - Goals for Treatment Patient goals for treatment: "I don't need anything." Discharge/Continuing Care - Education Needs Education Needs: Family Medication, Family Diagnosis/Disease Process, Family Coping Skills, Family Community resources, Family Health Practices/Safety, Family Personal Hygiene/Grooming, Family Aftercare Safety Plan, Patient Medication, Patient Diagnosis/Disease Process, Patient Coping Skills, Patient Community resources, Patient Health Practices/Safety, Patient Personal Hygiene/ Grooming, Patient Aftercare Safety Plan - Discharge Discharge Criteria: Tolerates medication w/o severe side effects, Free of paranoid thoughts, Free of agitation, Normal sleep pattern, Ability to care for self, Reduction of target symptoms Discharge to:: Home, With Family - Additional Comments 08/13/17 11:12 Pt seen and discussed in team meeting. Reason for admission reviewed and discussed. pt reported she does not recall who referred her to the hospital. Pt reported being in the hospital due to "something that happened to me." When asked to further elaborate, pt presented with flight of ideas and disorganized thought process. Pt started to talk about [facility] and how she arrived from [facility] to her son's home in [place], [place] to how her elderly mother of 99 is very sick in [place] and she needs to be discharged to go care for her. Pt very labile, talking about her grandmother that lived until the age of 105 and her aunt who recently in [place] at the age of 95. Pt tearful when talking about her aunt. Pt carried around a notebook with her wherein she writes everything down. Pt guarded and hyper vigilant. Pt does not allow staff to look at the notebook. Notebook observed to have different post it on the outside with unit rooms numbers and name on it. Pt has been observed to be writing about until activity in her notebook and also about staff members. Again when asked why she was in the hospital, pt stated 'I don't talk much about that" and immediately after pt began talking about her grandchildren. Pt's social and medical issues reviewed. Pt reported she was residing with daughterEva but now resides alone. Pt's medications reviewed and discussed. Tx plan reviewed. Pt inquired about discharge and advised that it is recommended that she remain in the hospital until next week; pt verbalized agreement. SW to continue to follow case. Pt agreeable to proposal writer contacting her daughterEva and son, Gume Allison. Written consents forms were signed by pt. - Treatment Team Participation Patient/Family/SO Statement: Bipolar Disorder w/ Psychotic Features; Dementia -Continue Depakote 500 mg PO BID -Continue Risperdal 2 mg PO HS -Namenda 5 mg PO Daily -Medicine consult -Psychology consult Discussed with Family/SO: No Was Patient/Family/SO present at Treatment Team Meeting: Yes Treatment Plan Review Patient participation: Yes Family/SO/Caregiver participation: No Additional Comments: Pt seen and discussed in team meeting. Pt's progress and bx on the unit reviewed. Pt aware of discharged scheduled for today. Pt reported feeling "good. " Pt reported that she is happy to be discharged and returning home with her family. Pt reported that she will be staying with her daughter, Donna in [place] because the house is bigger and also because she doesn't want nay problems with her [id number]. Pt informed of after care appointment with Dr. Jarek MD. psycho-education provided regarding the importance of medication and treatment compliance. Pt denied SI and HI. Pt denied AVH. Pt is less paranoid and intrusive. Pt is less guarded. - Problem Ineffective Impluse Control Date Initiated: 08/10/17 Time Initiated: 00:40 Progress toward outcomes: resolved - Discharge / Continuing Care Discharge to:: Home, With Family Behavioral Health Services: Outpatient therapy, Other (Medication Management) Health Needs: Follow up care/test, Doctor appointments, Medications/Rx, Recreational/Social
[2017-08-20 16:23] VITALS: BP 125/68; PULSE 82; TEMP 98.6
== END 2017-08-20 18:26 | disposition home or self-care (01) | DRG 885 ==
LOC: H.ER 16:50 → H.ERHOLD 22:12 → H.STEP 08-11 00:20
PROVIDERS: ADMIT Psychiatry & Neurology Psychiatry; ATTEND Psychiatry & Neurology Psychiatry
PROC: GZ51ZZZ Individual Psychotherapy, Behavioral (ICD-10-PCS; 2017-08-10)
PROC: GZHZZZZ Group Psychotherapy (ICD-10-PCS; principal; 2017-08-12)
DX: F31.2 Bipolar disorder, current episode manic severe with psychotic features (principal); I10 Essential (primary) hypertension; Z79.899 Other long term (current) drug therapy; Z91.14 Patient's other noncompliance with medication regimen; E87.6 Hypokalemia; F03.90 Unspecified dementia, unspecified severity, without behavioral disturbance, psychotic disturbance, mood disturbance, and anxiety; R82.71 Bacteriuria